=== PATIENT | female | born 1995 | race Caucasian/White ===

== ENCOUNTER 2020-12-28 22:46 | Emergency (ER) | payer OTHER, SELFPAY ==
--- NOTE | ~2020-12-28 | XR_ITS ---
EXAMINATION: XR foot RT min 3V, XR ankle RT min 3V EXAM DATE: 12/29/2020 00:05 (accession [id number]), 12/28/2020 23:13 (accession [id number]) INDICATION: Base of 5th metatarsal pain rt foot, injury . TECHNIQUE: Right foot dorsoplantar, lateral and oblique projections obtained and reviewed. Right ank le frontal, lateral and oblique projections obtained and reviewed. There is no prior study for jarvis jeff. FINDINGS: Right metatarsal bones unremarkable. The right ankle mortise appears intact. There are n o acute fractures or dislocations identified. There is no subcutaneous gas. The soft tissue is unre markable. There are no radiopaque foreign bodies. IMPRESSION: No acute osseous findings. Reviewed, dictated and finalized at location A. IMPRESSION: No acute osseous findings. IMPRESSION: No acute osseous findings.
[2020-12-28 22:49] VITALS: BP 118/59; PULSE 76; RESP 18; TEMP 36.4; O2SAT 100
[2020-12-28] MEDS: ACETAMINOPHEN 325 MG TABLET 650 MG PO (23:51)
--- NOTE | 2020-12-29 00:32 | ED_ITS ---
HPI - Extremity Injury (Lower) General Chief Complaint: Extremity Injury, Lower Stated Complaint: right leg and ankle injury s/p tripping at work Time Seen by Provider: 12/28/20 23:19 History of Present Illness HPI Narrative: Patient is a 25-year-old female who presents ER with right ankl e/foot pain. She reports that she was taking the trash out at work when a cat jumped out and startled her and she started running and she twisted her ankle. She has pain that goes from her foot up her leg when she bears weight. No numbness or tingling. She did not strike her head or lose consciousness. Related Data Allergies Allergy/AdvReac Type Severity Reaction Status Date / Time latex Allergy Unknown Rash Verified 12/28/20 23:17 loratadine Allergy Unknown Rash Verified 12/28/20 23:17 lorazepam Allergy Unknown Rash Verified 12/28/20 23:17 mint Allergy Unknown Swelling Verified 12/28/20 23:17 of Lip/Tongue/Throat Review of Systems Musculoskeletal: Musculoskeletal: Denies arthralgias, Denies joint swelling and Denies muscle cramps Comments: right foot pain Neurologic: Denies focal weakness and Denies numbness PMFSH Past Medical History Medical History (Updated 12/29/20 @ 00:35 by Sanya Dumas MD) Healthy female adult Surgical History Surgical History (Updated 12/29/20 @ 00:33 by Sanya Dumas MD) No history of previous surgery Exam Narrative: GENERAL: Well-appearing, well-nourished, and in no acute distress. HEAD: Normocephalic, atraumatic. HEART: Regular rate and rhythm. Normal peripheral pulses. EXTREMITIES: Normal range of motion. No edema. Mild tenderness at the base of fifth metatarsal of the right foot. No bruising or swelling. No tenderness at the. SKIN: Warm, dry, no rash. NEURO: Alert and oriented x3. PSYCH: Normal mood and affect. Course Course Emergency Course: Informed of results. Discharge home. Vital Signs Vital signs: Vital Signs Temperature 97.6 F 12/28/20 22:49 Pulse Rate 76 12/28/20 22:49 Respiratory Rate 18 12/28/20 22:49 Blood Pressure 118/59 L 12/28/20 22:49 Pulse Oximetry 100 12/28/20 22:49 Temperature 97.6 F 12/28/20 22:49 Pulse Rate 76 12/28/20 22:49 Respiratory Rate 18 12/28/20 22:49 Blood Pressure 118/59 L 12/28/20 22:49 Pulse Oximetry 100 12/28/20 22:49 MDM - Extremity Injury (Lower) Imaging Data My impression: X-ray of the right ankle and foot: No acute process. Discharge Plan Discharge Clinical Impression: Foot sprain Patient Disposition: Home, Self-Care Condition: Stable Instructions: Foot Sprain (ED) Additional Instructions: Return the ER if you suffer new injury, you have chest pain or shortness of breath, you have additional concerns. Take ibuprofen or Tylenol as needed for pain. You may ice the area as well. Follow-up/Referrals: PHYSICIAN NOT ON STAFF,NONSTAFF [Primary Care Provider] - 1 Week
[2020-12-29 00:47] VITALS: BP 105/70; PULSE 68; RESP 18; O2SAT 100
== END 2020-12-29 00:49 | disposition home or self-care (01) ==
PROVIDERS: Emergency Provider Emergency Medicine; PCP Family Medicine
DX: S93.601A Unspecified sprain of right foot, initial encounter (principal); X50.9XXA Other and unspecified overexertion or strenuous movements or postures, initial encounter; Y93.02 Activity, running
CPT/HCPCS: 73610; 73630; 99283; A9270

== ENCOUNTER 2021-02-26 13:58 | Emergency (ER) | payer OTHER, SELFPAY ==
[2021-02-26] VITALS (11 sets, daily range): BP systolic 104–113; BP diastolic 68–73; PULSE 71–99; RESP 13–34; TEMP 36.6; O2SAT 100
--- NOTE | ~2021-02-26 | XR_ITS ---
EXAMINATION: XR chest 2V DATE: 02/26/2021 15:18 INDICATION: Cough, shortness of breath TECHNIQUE: PA and lateral views of the chest are obtained. COMPARISON: None available FINDINGS: The lungs are free of acute opacities. There is no pleural effusion or pneumothorax. The ca rdiomediastinal silhouette is normal. Acute left-sided rib fractures are noted. IMPRESSION: 1. No acute cardiopulmonary abnormality. Reviewed, dictated and finalized at location F. [employer]
--- NOTE | 2021-02-26 15:10 | ECG_ITS ---
Measurements Intervals Epes Rate: 88 P: 67 [place]: 191 QRS: 43 QRSD: 74 T: 25 QT: 329 QTc: 400 Interpretive Statements SINUS RHYTHM BASELINE ARTIFACT- I, II, III, AVR, AVL NORMAL ECG Electronically Signed On 02-26-2021 15:36:51 SITE INTERPRETER by Oswaldo Falcon D.O.
--- NOTE | 2021-02-26 15:15 | PC.NURSE ---
pt to xray
--- NOTE | 2021-02-26 15:29 | ED.GENADULT ---
HPI - General Adult General Chief complaint: Upper Respiratory Infection Stated complaint: cp and sob Time Seen by Provider: 02/26/21 14:56 Source: patient Mode of arrival: ambulatory Limitations: no limitations History of Present Illness HPI narrative: Patient is a 25-year-old female complaining of chest pain, tightness, worse with palpation and movement left upper chest, 5 out of 10, nonradiating started yesterday. Patient denies any shortness of breath abdominal pain, nausea, vomiting, diaphoresis, fever or chills Related Data Home Medications Medication Instructions Recorded Confirmed zonisamide PO 02/26/21 02/26/21 Allergies Allergy/AdvReac Type Severity Reaction Status Date / Time latex Allergy Unknown Rash Verified 02/26/21 14:56 loratadine Allergy Unknown Rash Verified 02/26/21 14:56 lorazepam Allergy Unknown Rash Verified 02/26/21 14:56 mint Allergy Unknown Swelling Verified 02/26/21 14:56 of Lip/Tongue/Throat Review of Systems Review of Systems: All systems reviewed & are unremarkable except as noted in HPI and below Constitutional: Constitutional: Denies body ache(s), Denies chills, Denies excessive sweating, Denies fatigue, Denies fever(s), Denies headache(s), Denies lethargy, Denies malaise, Denies weakness and Denies weight loss Eyes: Eyes: Denies blurry vision, Denies change in vision and Denies loss of vision ENT: Denies dizziness, Denies ear discharge, Denies headache(s), Denies lip swelling, Denies epistaxis, Denies nasal congestion, Denies neck pain, Denies throat swelling and Denies tongue swelling Cardiovascular: Cardiovascular: Denies diaphoresis, Denies rapid heart rate, Denies edema, Denies irregular heart rhythm, Denies lightheadedness, Denies palpitations and Denies dyspnea on exertion Respiratory: Respiratory: Denies chest congestion, Denies hemoptysis and Denies dyspnea on exertion Gastrointestinal: Gastrointestinal: Denies abdominal pain, Denies melena, Denies hematochezia, Denies diarrhea, Denies nausea, Denies vomiting and Denies hematemesis Musculoskeletal: Musculoskeletal: Denies abnormal gait, Denies deformity, Denies joint swelling, Denies limited range of motion, Denies neck pain and Denies numbness Neurologic: Denies Abnormal speech present, Denies abnormal gait, Denies confusion, Denies dizziness, Denies headache(s), Denies focal weakness, Denies loss of vision, Denies numbness, Denies Other visual disturbances, Denies Sensory deficit (Neuro) and Denies weakness Psychiatric: Psychiatric: Denies confusion, Denies depression, Denies auditory hallucinations, Denies homicidal ideation and Denies suicidal ideation Endocrine: Endocrine: Denies cold intolerance, Denies excessive sweating, Denies fatigue, Denies heat intolerance and Denies palpitations Hematologic/Lymphatic: Hematologic/Lymphatic: Denies easy bleeding and Denies easy bruising Allergic/Immunologic: Allergic/Immunologic: Denies lip swelling, Denies throat swelling and Denies tongue swelling PMFSH Past Medical History Medical History (Updated 02/26/21 @ 15:43 by Sage Gomez MD) Healthy female adult Surgical History Surgical History (Updated 12/29/20 @ 00:33 by Sanya Dumas MD) No history of previous surgery Comments Past medical history: Seizure Family history: Negative for coronary disease or [place] Social history: Non-smoker no EtOH or drug use Exam Const: General: cooperative, healthy appearing, comfortable, no acute distress, well developed, alert and awake; No confusion Orientation/consciousness: oriented to person, oriented to place, oriented to time, patient oriented x3 and No confusion Limitations: no limitations HENMT: Head: normal to inspection, normocephalic and atraumatic Ears: hearing grossly normal bilaterally, TM normal on the right and TM normal on the left General nose exam: Normal external nose present, Normal nares present and No nasal discharge present Face and sinus:
== END 2021-02-26 16:21 | disposition home or self-care (01) ==
PROVIDERS: Emergency Provider Emergency Medicine
DX: R07.89 Other chest pain (principal)
CPT/HCPCS: 71046; 93005; 99283

== ENCOUNTER 2021-04-19 11:21 | Emergency (ER) | payer OTHER, SELFPAY ==
--- NOTE | ~2021-04-19 | XR_ITS ---
EXAMINATION: XR wrist RT min 3V DATE: 04/19/2021 11:36 INDICATION: Right wrist pain post injury TECHNIQUE: Posteroanterior, ulnar deviation, oblique, and lateral views of the right wrist were obtai clifford. COMPARISON: none FINDINGS: Alignment is normal. No fracture. Joint spaces are normal. Soft tissues are unremarkable. IMPRESSION: 1. Negative right wrist radiographs. Reviewed, dictated and finalized at location A. INFORMATION ASSOCIATE
[2021-04-19 11:34] VITALS: BP 107/62; PULSE 95; RESP 16; TEMP 36.6; O2SAT 99
--- NOTE | 2021-04-19 11:48 | ED.GENADULT ---
HPI - General Adult General Chief complaint: Extremity Injury, Upper Stated complaint: Right wrist injury Time Seen by Provider: 04/19/21 11:49 Source: patient Mode of arrival: ambulatory Limitations: no limitations History of Present Illness HPI narrative: 26-year-old female presented for complaint of pain to right wrist after injury 2 days ago. Pain located at thumb radiating to distal forearm. She states she slipped on the ice and FOOSH, up with the right hand. Pain is constant, worse with movement. Denies numbness, tingling, or weakness, swelling, bruising or redness. Has taken Tylenol and ibuprofen for pain and wearing soft wrist splint. Related Data Home Medications Medication Instructions Recorded Confirmed zonisamide 200 mg PO DAILY 02/26/21 04/19/21 Allergies Allergy/AdvReac Type Severity Reaction Status Date / Time latex Allergy Unknown Rash Verified 04/19/21 11:37 loratadine Allergy Unknown Rash Verified 04/19/21 11:37 lorazepam Allergy Unknown Rash Verified 04/19/21 11:37 mint Allergy Unknown Swelling Verified 04/19/21 11:37 of Lip/Tongue/Throat Review of Systems Review of Systems: CONSTITUTIONAL: Denies body aches, fever, chills EYES: Denies visual changes ENT: Denies rhinorrhea, congestion CARDIOVASCULAR: Denies chest pain, palpitations, or edema. RESPIRATORY: Denies cough or dyspnea. GASTROINTESTINAL: Denies abdominal pain, nausea, vomiting, or diarrhea. SKIN: Denies rash, itching, or wounds. MUSCULOSKELETAL: Right wrist/thumb pain NEUROLOGIC: Denies headache, numbness, tingling, or weakness. PSYCH: Denies depression or anxiety. All systems reviewed & are unremarkable except as noted in HPI and below PMFSH Past Medical History Medical History (Updated 04/19/21 @ 11:58 by Ml Wade APRN) Healthy female adult Surgical History Surgical History No history of previous surgery Comments At time of signature, I have reviewed and agree with nursing past medical, surgical, social and family history unless otherwise noted. Please see nursing chart for further information. There is no relevant family history pertinent to the presenting complaint Exam Narrative: GENERAL: Well-appearing, well-nourished, and in no acute distress. HEAD: Normocephalic, atraumatic. EYES: PERRLA, conjunctivae clear NECK: Supple. CHEST: Speaks in full sentences. No respiratory distress. HEART: Regular rate and rhythm. Normal and equal peripheral pulses. EXTREMITIES: Guarding right wrist, full ROM but endorses pain, no bruising or swelling, pulse and sensation intact. No point tenderness. No open wounds, no skin tenting, no obvious deformity; skin warm, dry, pink. Capillary refill less than 3 seconds. SKIN: Warm, dry, no rash. NEURO: Alert and oriented x3. PSYCH: Normal mood and affect Course Course Emergency Course: Patient is aware of diagnosis, understands and agrees to treatment plan. Anticipatory guidance given. Patient agrees to follow-up as directed and is aware of reasons to seek care at the emergency department. Portions of this record may have been created with voice recognition software Level of Care: Express Care Visit Vital Signs Vital signs: Vital Signs Temperature 98 F 04/19/21 11:34 Pulse Rate 95 04/19/21 11:34 Respiratory Rate 16 04/19/21 11:34 Blood Pressure 107/62 04/19/21 11:34 Pulse Oximetry 99 04/19/21 11:34 Temperature 98 F 04/19/21 11:34 Pulse Rate 95 04/19/21 11:34 Respiratory Rate 16 04/19/21 11:34 Blood Pressure 107/62 04/19/21 11:34 Pulse Oximetry 99 04/19/21 11:34 Reviewed Medical Decision Making MDM Narrative Medical decision making narrative: carpal fracture, radial fracture, wrist sprain Vital Signs Vital Signs: Vital Signs Temperature 98 F 04/19/21 11:34 Pulse Rate 95 04/19/21 11:34 Respiratory Rate 16 04/19/21 11:34 Blood Pressure 107/62 02/1
== END 2021-04-19 12:02 | disposition home or self-care (01) ==
PROVIDERS: Emergency Provider Nurse Practitioner Family
DX: S63.501A Unspecified sprain of right wrist, initial encounter (principal); S66.911A Strain of unspecified muscle, fascia and tendon at wrist and hand level, right hand, initial encounter; W00.0XXA Fall on same level due to ice and snow, initial encounter; G40.909 Epilepsy, unspecified, not intractable, without status epilepticus
CPT/HCPCS: 73110; 99213; G0463

== ENCOUNTER 2021-06-21 22:18 | Emergency (ER) | payer OTHER, SELFPAY ==
[2021-06-21 22:29] VITALS: BP 128/78; PULSE 130; RESP 20; TEMP 37.1; O2SAT 99
--- NOTE | 2021-06-21 22:41 | ED.ABDPAIN ---
HPI - Abdominal Pain General Chief Complaint: Abdominal Pain Stated Complaint: ABD PAIN Time Seen by Provider: 06/21/21 22:25 History of Present Illness HPI narrative: 26-year-old female presents emergency room for evaluation of a cute onset of abdominal pain. Patient states that she is got periumbilical pain associated with nausea. Patient describes pain as a sharp and stabbing. Patient denies constipation or diarrhea. Patient denies fever Related Data Home Medications Medication Instructions Recorded Confirmed zonisamide 200 mg PO DAILY 02/26/21 04/19/21 Allergies Allergy/AdvReac Type Severity Reaction Status Date / Time latex Allergy Unknown Rash Verified 04/19/21 11:37 loratadine Allergy Unknown Rash Verified 04/19/21 11:37 lorazepam Allergy Unknown Rash Verified 04/19/21 11:37 mint Allergy Unknown Swelling Verified 04/19/21 11:37 of Lip/Tongue/Throat Review of Systems Review of Systems: CONSTITUTIONAL: Denies fever, chills, or sweats. EYES: Denies visual changes, redness, or discharge. ENT: Denies rhinorrhea, congestion, sore throat, or otalgia. CARDIOVASCULAR: Denies chest pain, palpitations, or edema. RESPIRATORY: Denies cough or dyspnea. GASTROINTESTINAL: Reports abdominal pain and vomiting GENITOURINARY: Denies dysuria or hematuria. SKIN: Denies rash or itching. MUSCULOSKELETAL: Denies back pain, joint pain, or myalgia. NEUROLOGIC: Denies headache, numbness, dizziness, or weakness. PSYCHIATRIC: Denies anxiety or depression. PMFSH Past Medical History Medical History Healthy female adult Surgical History Surgical History No history of previous surgery Exam Narrative: GENERAL: Well-appearing, well-nourished, and in no acute distress. HEAD: Normocephalic, atraumatic. EYES: PERRLA and EOMI. CHEST: Clear to auscultation. No respiratory distress. No wheezes rales or rhonchi HEART: Regular rate and rhythm. No murmur heard. Normal peripheral pulses. ABDOMEN: Soft, umbilical tenderness, nondistended, normal active bowel sounds. EXTREMITIES: Normal range of motion. No edema. SKIN: Warm, dry, no rash. NEURO: No focal deficits. Alert and oriented x3. PSYCH: Normal mood and affect. Course Vital Signs Vital signs: Vital Signs Temperature 37.1 C 06/21/21 22:29 Pulse Rate 130 H 06/21/21 22:29 Respiratory Rate 20 06/21/21 22:29 Blood Pressure 128/78 06/21/21 22:29 Pulse Oximetry 99 06/21/21 22:29 Temperature 37.1 C 06/21/21 22:29 Pulse Rate 130 H 06/21/21 22:29 Respiratory Rate 20 06/21/21 22:29 Blood Pressure 113/75 06/22/21 01:00 Pulse Oximetry 100 06/22/21 01:01 MDM - Abdominal Pain Lab Data Result diagrams: 06/22/21 00:04 06/22/21 00:04 Labs: Lab Results 06/22/21 06/22/21 06/22/21 Range/Units 00:04 00:04 01:40 WBC 12.8 H (4.5-10.0) K/mm3 RBC 4.01 L (4.2-5.4) M/mm3 Hgb 11.0 L (12.0-15.0) g/dL Hct 35.3 L (37.0-47.0) % MCV 88.0 (80-100) fl MCH 27.4 (26-34) pg MCHC 31.2 L (32-36) g/dl RDW 15.5 H (11.5-14.5) % Plt Count 268 (150-375) k/mm3 MPV 10.1 (7.4-10.4) fl Immature Gran % (Auto) 0.2 (0-0.5) % Neut % (Auto) 76.2 H (45.5-73.1) % Lymph % (Auto) 12.2 L (18.3-44.2) % [place] % (Auto) 9.4 H (2.6-8.5) % Eos % (Auto) 1.5 (0-4.4) % Baso % (Auto) 0.5 (0.2-1.2) % Lymph # (Auto) 1.56 (0.9-3.2) K/mm3 [place] # (Auto) 1.2 H (0.1-0.6) K/mm3 Eos # (Auto) 0.2 (0-0.3) K/mm3 Baso # (Auto) 0.1 (0.0-0.1) K/mm3 Abs Immat Gran (auto) 0.03 (0.00-0.031) K/mm3 Absolute Neuts (auto) 9.7 H (1.3-6.7) K/mm3 Absolute Nucleated RBC 0.0 (0.0-0.012) K/mm3 Nucleated RBC % 0.0 (0.0-0.2) % Sodium 137 (137-145) mmol/L Potassium 3.7 (3.4-5.0) mmol/L Chloride 108 H (98-107) mmol/L Carbon Dioxide 21 L
[2021-06-22] VITALS (21 sets, daily range): BP systolic 94–117; BP diastolic 58–75; PULSE 105; RESP 16; O2SAT 96–100
[2021-06-22] MEDS: SODIUM CHLORIDE 0.9% IV 1,000 ML 999 ML IV CONT (00:07)
[2021-06-22] MEDS: diphenhydrAMINE HCl INJ 50 MG/ML VIAL 25 MG IV PUSH (00:07)
[2021-06-22] MEDS: DICYCLOMINE HCL INJ 20 MG/2 ML VIAL IM (00:08)
[2021-06-22] MEDS: METOCLOPRAMIDE HCL INJ 10 MG/2 ML VIAL IV PUSH (00:08)
[2021-06-22 00:14] LABS: Basophils Absolute Auto 0.1 K/mm3 (0.0-0.1); Basophils Percent Auto 0.5 % (0.2-1.2); Eosinophils Absolute Auto 0.2 K/mm3 (0-0.3); Eosinophils Percent Auto 1.5 % (0-4.4); Hematocrit 35.3 % (37.0-47.0); Immature Granulocyte Absolute 0.03 K/mm3 (0.00-0.031); Immature Granulocyte Percent A 0.2 % (0-0.5); Lymphocytes Absolute Auto 1.56 K/mm3 (0.9-3.2); Lymphocytes Percent Auto 12.2 % (18.3-44.2); Mean Corpuscular HGB Conc 31.2 g/dl (32-36); Mean Corpuscular Hemoglobin 27.4 pg (26-34); Mean Platelet Volume 10.1 fl (7.4-10.4); Monocytes Absolute Auto 1.2 K/mm3 (0.1-0.6); Monocytes Percent Auto 9.4 % (2.6-8.5); Neutrophils Absolute Auto 9.7 K/mm3 (1.3-6.7); Neutrophils Percent Auto 76.2 % (45.5-73.1); Platelet Count Result 268 k/mm3 (150-375); Red Blood Count 4.01 M/mm3 (4.2-5.4); Red Cell Distribution Width 15.5 % (11.5-14.5); White Blood Count 12.8 K/mm3 (4.5-10.0)
[2021-06-22 00:34] LABS: Alanine Aminotransferase 12 U/L (4-35); Albumin Level 4.4 g/dL (3.5-5.1); Alkaline Phosphatase 53 U/L (38-126); Anion Gap 8 mmol/L (8-16); Aspartate Amino Transferase 24 U/L (14-36); Bilirubin,Total 0.7 mg/dL (0.2-1.3); Blood Urea Nitrogen 11 mg/dL (7-17); Calcium 8.7 mg/dL (8.4-10.2); Carbon Dioxide 21 mmol/L (22-30); Chloride 108 mmol/L (98-107); Estimated CRCL calculation 102 ml/min; Estimated Glomerular Filt Rate > 60; Glucose 105 mg/dL (65-110); Lipase 44 U/L (23-300); Potassium 3.7 mmol/L (3.4-5.0); Sodium 137 mmol/L (137-145)
[2021-06-22 01:48] LABS: Add Urine Microscopic? YES; Appearance Urine Clear (Clear); Bacteria Urine Trace /hpf; Bilirubin Urine Negative (Negative); Blood Urine 2+ (Negative); Color Urine Straw (Yellow); Glucose Urine UA Negative (Negative); Ketones Urine Negative (Negative); Leukocyte Esterase Ur Trace LEU/UL (Negative); Nitrate Urine Negative (Negative); Protein Urine Negative (Negative); RBC Urine 0-2 /hpf (0-2); Specific Grav Ur 1.008 (1.001-1.035); Squamous Epithelial Cell Urine Occasional /hpf (Few); Urobilinogen Urine Negative mg/dL (<2.0)
[2021-06-22] MEDS: NITROFURANTOIN MONOHYD MACROCR 100 MG CAP PO (02:35)
== END 2021-06-22 02:38 | disposition home or self-care (01) ==
PROVIDERS: Emergency Provider Nurse Practitioner Family
DX: K52.9 Noninfective gastroenteritis and colitis, unspecified (principal); N39.0 Urinary tract infection, site not specified
CPT/HCPCS: 36415; 80053; 81001; 83690; 85025; 96361; 96372; 96374; 96375; 99284; A9270; J0500; J1200; J2765; J7030

== ENCOUNTER 2024-07-17 18:01 | Emergency (ER) | payer OTHER, SELFPAY ==
[2024-07-17 18:10] VITALS: BP 125/71; PULSE 90; RESP 16; TEMP 37; O2SAT 99
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
== END 2024-07-17 18:33 | disposition home or self-care (01) ==
PROVIDERS: Emergency Provider Nurse Practitioner
DX: L55.9 Sunburn, unspecified (principal)
CPT/HCPCS: 99213; G0463